=== PATIENT | female | born 1955 | race Two or more races ===

== ENCOUNTER → 2025-05-21 | Outpatient (CLI) | payer OTHER, MEDICAID, SELFPAY ==
--- NOTE | 2025-05-21 16:00 | XR_ITS ---
Examination: Carotid arterial duplex scan, ultrasound. Date and time of exam: May 21, 2025, 1549 hrs. Indications: Severe neck pressure and dizziness episodes beginning one year ago Technique: Multiple sonographic images have been obtained of the carotid arteries and vertebral arteries, B-mode/grayscale imaging and Doppler spectral analysis and color flow Peak systolic and diastolic velocities have been recorded. Systolic diastolic ratios have been calculated. Findings: Right peak systolic velocities: Distal internal carotid artery peak systolic velocity is 0.7 M/sec Proximal internal carotid artery peak systolic velocity is 0.5 M/sec Carotid bifurcation peak systolic velocity is 0.4 M/sec External carotid artery peak systolic velocity is 1.4 M/sec Vertebral artery flow is antegrade. Left peak systolic velocities: Distal internal carotid artery peak systolic velocity is 0.6 M/sec Proximal internal carotid artery peak systolic velocity is 1.2 M/sec Carotid bifurcation peak systolic velocity is 0.7 M/sec External carotid artery peak systolic velocity is 1.1 M/sec Vertebral artery flow is antegrade Doppler waveform analysis demonstrates spectral broadening on the left Impression: Right internal carotid artery demonstrates 0-10% stenosis. Left internal carotid artery demonstrates 10-30% stenosis.
== END | disposition home or self-care (01) ==
PROVIDERS: PCP Physician Assistant; Referring Provider Physician Assistant; Visit Provider Physician Assistant
DX: I65.22 Occlusion and stenosis of left carotid artery (principal)
CPT/HCPCS: 93880